=== PATIENT | female | born 1980 | race Caucasian/White ===

== ENCOUNTER → 2016-10-13 | Outpatient (REF) | payer OTHER ==
[~2016-10-13] MED LIST: /OXYB10XLT PO; ADDE15CA PO; BACT800T5 PO; BENT10CA PO; BIOT7500 PO; BIRTH CONTROL PO; BUPR300T34 PO; CART240C PO; CELE-19 PO; CYCL5TA PO; DILT240C5 PO; DILT240C77 PO; DOCU10ELUD PO; ENTO3CAP5 PO; FOLI800T PO; HAIRTAB5 PO; HYDR12.55 PO; INDA125TA PO; KETO10TAB PO; LEXA1TAB PO; LEXA5SOL PO; MULT1TAB8 PO; OMEP10CASR PO; PENT500C4 PO; PERC5TAB6 PO; SPIR25TA2 PO; TOPI200T4 PO; VITA10003 SQ; VITA100072 PO; XANA0.5T PO; ZINC30TA3 PO; ZOFR20TA PO
== END ==
LOC: M LAB REF 16:17
PROVIDERS: ATTEND Surgery
DX: J02.9 Acute pharyngitis, unspecified (principal)

== ENCOUNTER → 2016-10-18 | Outpatient (CLI) | payer OTHER ==
--- NOTE | 2016-10-18 12:13 | REP ---
LUMBOSACRAL SPINE: Five views of the lumbosacral spine are performed. There is no fracture or dislocation. Vertebral bodies are normal in height and are well aligned with normal lumbar lordosis. There is no spondylolysis or spondylolisthesis. There is mild spurring of L5. Disc spaces appear relatively well preserved. The posterior elements are intact. There is mild sclerosis at L5-S1 facets. IUD is seen in the pelvis. Surgical sutures are seen in the right lower quadrant. IMPRESSION: Very mild spurring L5 and sclerosis at the facets of L5-S1. Signed by Elieser Hitchcock MD 10/18/2016 02:18 P
== END ==
LOC: M WUC 11:24
PROVIDERS: ATTEND Nurse Practitioner Family
DX: M54.5 Low back pain (principal); M25.78 Osteophyte, vertebrae; M41.9 Scoliosis, unspecified

== ENCOUNTER → 2016-12-10 | Outpatient (REF) | payer OTHER ==
[~2016-12-10] MED LIST changes: -DILT240C5 PO; +DILT240C75 PO
[2016-12-10 18:04] LABS: VITAMIN B12 LEVEL 807 PG/ML
[2016-12-10 18:05] LABS: FOLATE > 24.0 NG/ML
== END ==
LOC: M LAB REF 16:42
PROVIDERS: ATTEND Internal Medicine
DX: L65.9 Nonscarring hair loss, unspecified (principal)

== ENCOUNTER → 2017-01-04 | Outpatient (REF) | payer OTHER | LOC: M LAB REF 09:07 | PROVIDERS: ATTEND Student in an Organized Health Care Education/Training Program | DX: R10.32 Left lower quadrant pain (principal); K50.00 Crohn's disease of small intestine without complications; R19.7 Diarrhea, unspecified; M25.50 Pain in unspecified joint ==

== ENCOUNTER → 2017-01-07 | Outpatient (CLI) | payer OTHER | LOC: M WUC 16:47 | PROVIDERS: ATTEND Internal Medicine | DX: I10 Essential (primary) hypertension (principal) ==

== ENCOUNTER → 2017-01-10 | Outpatient (REF) | payer OTHER | LOC: M LAB REF 10:31 | PROVIDERS: ATTEND Internal Medicine | DX: I10 Essential (primary) hypertension (principal) ==

== ENCOUNTER → 2017-06-28 | Outpatient (REF) | payer OTHER ==
[~2017-06-28] MED LIST changes: -ADDE15CA PO; +ADDE15CA3 PO; -CART240C PO; +CART240C3 PO; -CELE-19 PO; +CELE1CAP4 PO; -CYCL5TA PO; +CYCL5TAB PO; +PERC5TAB12 PO; -PERC5TAB6 PO; -TOPI200T4 PO; +TOPI200T7 PO
[2017-07-01 00:07] LABS: Lyme Disease IgG/IgM Antibodie <0.91 ISR (0.00-0.90); Lyme Disease IgM Ab Quantitati <0.80 index (0.00-0.79)
== END ==
LOC: M LAB REF 17:49
PROVIDERS: ATTEND Internal Medicine
DX: G43.909 Migraine, unspecified, not intractable, without status migrainosus (principal); M25.50 Pain in unspecified joint

== ENCOUNTER → 2017-10-29 | Outpatient (REF) | payer OTHER | LOC: M LAB REF 17:54 | DX: J02.9 Acute pharyngitis, unspecified (principal) ==

== ENCOUNTER 2017-11-08 02:24 | Emergency (ER) | payer OTHER ==
[2017-11-08] MEDS: NS 500 ML IV (03:45)
[2017-11-08] MEDS: NS 1,000 ML IV (03:45)
[2017-11-08 04:09] LABS: BASO % 0.2 % (0.0-1.0); EOS # 0.2 10^3/uL (0.0-0.50); EOS % 1.7 % (0.0-3.0); HEMATOCRIT 38.1 % (36.0-47.0); IMMATURE GRANULOCYTE % 0.4 % (0-3.0); LYMPH # 2.7 10^3/uL (1.5-4.5); LYMPH % 24.3 % (24.0-44.0); MEAN CORPUSCULAR HGB CONC 34.1 g/dl (32.0-36.5); MONO % 8.6 % (0.0-5.0); NEUTROPHILS # 7.3 10^3/uL (1.8-7.7); NEUTROPHILS % 64.8 % (36.0-66.0); PLATELET COUNT, AUTOMATED 293 10^3/uL (150-450); RED BLOOD COUNT 4.33 10^6/uL (4.00-5.40); WHITE BLOOD COUNT 11.2 10^3/uL (4.0-10.0)
[2017-11-08 04:19] LABS: ALBUMIN 3.8 GM/DL (3.2-5.2); ALBUMIN/GLOBULIN RATIO 0.95 (1.00-1.93); ALKALINE PHOSPHATASE 59 U/L (45-117); ALT/SGPT 36 U/L (12-78); ANION GAP 7 MEQ/L (8-16); AST/SGOT 15 U/L (7-37); BILIRUBIN,DIRECT 0.2 MG/DL (0.0-0.2); BILIRUBIN,TOTAL 0.9 MG/DL (0.2-1.0); BLOOD UREA NITROGEN 11 MG/DL (7-18); CALCIUM LEVEL 8.3 MG/DL (8.5-10.1); CARBON DIOXIDE LEVEL 24 MEQ/L (21-32); CHLORIDE LEVEL 108 MEQ/L (98-107); CREATININE FOR GFR 1.07 MG/DL (0.55-1.30); GLOMERULAR FILTRATION RATE > 60.0 (>60); GLUCOSE, FASTING 112 MG/DL (70-100); POTASSIUM SERUM 3.6 MEQ/L (3.5-5.1); SODIUM LEVEL 139 MEQ/L (136-145); TOTAL PROTEIN 7.8 GM/DL (6.4-8.2)
== END 2017-11-08 06:50 | disposition home or self-care (01) ==
LOC: M ED 02:24
DX: E86.9 Volume depletion, unspecified (principal); R19.7 Diarrhea, unspecified; I10 Essential (primary) hypertension; K58.0 Irritable bowel syndrome with diarrhea; F41.9 Anxiety disorder, unspecified; F33.9 Major depressive disorder, recurrent, unspecified; Z79.899 Other long term (current) drug therapy; Z86.69 Personal history of other diseases of the nervous system and sense organs; Z98.890 Other specified postprocedural states; Z88.5 Allergy status to narcotic agent
CPT/HCPCS: 80076

== ENCOUNTER → 2017-11-09 | Outpatient (REF) | payer OTHER | LOC: M LAB REF 12:27 | DX: R19.7 Diarrhea, unspecified (principal) | CPT/HCPCS: 87507 ==

== ENCOUNTER → 2018-04-20 | Outpatient (CLI) | payer OTHER ==
[2018-04-20 17:11] LABS: BASO % 0.5 % (0.0-1.0); EOS # 0.2 10^3/uL (0.0-0.50); EOS % 2.7 % (0.0-3.0); HEMATOCRIT 38.1 % (36.0-47.0); IMMATURE GRANULOCYTE % 0.3 % (0-3.0); LYMPH # 2.7 10^3/uL (1.5-4.5); LYMPH % 41.1 % (24.0-44.0); MEAN CORPUSCULAR HEMOGLOBIN 30.4 pg (27.0-33.0); MEAN CORPUSCULAR HGB CONC 34.1 g/dl (32.0-36.5); MEAN CORPUSCULAR VOLUME 89.2 fl (80.0-96.0); MONO # 0.6 10^3/uL (0.0-0.8); MONO % 8.4 % (0.0-5.0); NEUTROPHILS # 3.1 10^3/uL (1.8-7.7); PLATELET COUNT, AUTOMATED 276 10^3/uL (150-450); RED BLOOD COUNT 4.27 10^6/uL (4.00-5.40); RED CELL DISTRIBUTION WIDTH 12.7 % (11.5-14.5); WHITE BLOOD COUNT 6.7 10^3/uL (4.0-10.0)
[2018-04-20 17:15] LABS: IRON (FE) 107 UG/DL (50-170)
[2018-04-20 17:15] LABS: THYROXINE (T4) 9.4 UG/DL (4.5-12.0)
[2018-04-22 14:16] LABS: ANTINUCLEAR ANTIBODIES DIRECT Negative (Negative); TESTOSTERONE FREE (DIRECT) 1.4 pg/mL (0.0-4.2)
== END ==
LOC: M WUC 15:15
DX: R53.83 Other fatigue (principal); L65.8 Other specified nonscarring hair loss (principal)
CPT/HCPCS: 83540

== ENCOUNTER → 2018-06-17 | Outpatient (CLI) | payer OTHER ==
[2018-06-17 20:23] LABS: HEMATOCRIT 40.4 % (36.0-47.0)
[2018-06-17 20:40] LABS: FREE T3 2.9 PG/ML (2.2-4.0); FREE T4 1.17 NG/DL (0.76-1.46)
[2018-06-19 10:04] LABS: TOTAL 25(OH) VITAMIN D 29.4 NG/ML (30.0-100.0)
[2018-06-19 10:05] LABS: THYROID PEROXIDASE ANTIBODY < 28.0 U/ML (<60.0)
[2018-06-19 10:06] LABS: THYROGLOBULIN ANTIBODY 31.5 U/ML (<60.0)
[2018-06-20 10:44] LABS: PRETREATED FOLATE FOR RBCFOL 14.6 NG/ML; RBC FOLATE 758.9 NG/ML (280-791)
[2018-06-24 00:08] LABS: ARSENIC BLOOD 5 ug/L (2-23); GLUTATHIONE QT 275 ug/mL (176-323); LEAD BLOOD None Detected ug/dL (0-4); MAGNESIUM RBC LEVEL 4.7 mg/dL (4.2-6.8); MERCURY BLOOD None Detected ug/L (0.0-14.9); T3 REVERSE 27.5 ng/dL (9.2-24.1); ZINC RBC 1300 ug/dL (878-1660)
[2018-06-24 00:08] LABS: ALUMINUM LEVEL 11 ug/L (0-9)
== END ==
LOC: M WUC 12:34
DX: F34.1 Dysthymic disorder (principal); L63.9 Alopecia areata, unspecified; K50.00 Crohn's disease of small intestine without complications
CPT/HCPCS: 83655

== ENCOUNTER → 2018-10-04 | Outpatient (REF) | payer OTHER ==
[~2018-10-04] MED LIST changes: +AMIT10TA PO; +DILT240C14 PO; -DILT240C75 PO; +LABE20TAB PO; +SPIR-10 PO; -SPIR25TA2 PO; +TIZA4CAP PO; +TOPI25TA10 PO; +VALS1TAB47 PO; -ZOFR20TA PO; +ZOFR4TAB16 PO
[2018-10-08 00:07] LABS: HPV HYBRID CAPTURE II Negative (Negative)
== END ==
LOC: M SFHCWAGY 13:55
PROVIDERS: ATTEND Nurse Practitioner Family
DX: Z12.4 Encounter for screening for malignant neoplasm of cervix (principal)
CPT/HCPCS: 87624; G0123

== ENCOUNTER → 2018-11-29 | Outpatient (CLI) | payer OTHER ==
--- NOTE | 2018-11-29 11:56 | REPMRS ---
Patient History The patient states she had a clinical breast exam in 09/2018. Family history of colorectal cancer at age 60 in paternal cousin. Benign ultrasound-guided cyst aspiration of both breasts, 1998. Taking hormonal contraceptives for 5 years. 3D TOMOSYNTHESIS WAS PERFORMED. Digital Woman Screen Mammo: November 29, 2018 - Exam #: [id number] Bilateral CC and MLO view(s) were taken. Technologist: Dilma Aguilar, Technologist FINDINGS: There are scattered fibroglandular densities. There is no evidence of cancer on this mammogram. Large coarse benign appearing calcifications are present. Assessment: BI-RADS/ACR category 2 mammogram. Benign Findings. Recommendation Routine screening mammogram of both breasts in 1 year (for women over age 40). This mammogram was interpreted with the aid of an FDA-approved computer-aided dectection system. Electronically Signed By: Elieser Hitchcock MD 11/29/18 [id number]
== END ==
LOC: M WHC 09:29
PROVIDERS: ATTEND Nurse Practitioner Family
DX: Z12.31 Encounter for screening mammogram for malignant neoplasm of breast (principal); Z80.0 Family history of malignant neoplasm of digestive organs

== ENCOUNTER → 2019-01-05 | Outpatient (REF) | payer OTHER ==
[~2019-01-05] MED LIST changes: -/OXYB10XLT PO; +DILT1CAP5 PO; -DILT240C14 PO; -DILT240C77 PO; +DILT240C82 PO; +DITR1TAB PO; -DOCU10ELUD PO; +DOCU5LIQ PO; -VALS1TAB47 PO; +VALS1TAB67 PO; +VITA100018 PO; -VITA100072 PO
[2019-01-05 17:55] LABS: INFLUENZA A AMPLIFICATION NEGATIVE (NEGATIVE); INFLUENZA B AMPLIFICATION NEGATIVE (NEGATIVE)
== END ==
LOC: M LAB REF 16:45
PROVIDERS: ATTEND Internal Medicine
DX: R50.9 Fever, unspecified (principal)

== ENCOUNTER → 2019-01-15 | Outpatient (REF) | payer OTHER | LOC: M LAB REF 16:35 | PROVIDERS: ATTEND Nurse Practitioner Adult Health | DX: J02.9 Acute pharyngitis, unspecified (principal) ==

== ENCOUNTER → 2019-02-21 | Outpatient (REF) | payer OTHER ==
[2019-02-27 08:06] LABS: CALPROTECTIN STOOL 32 ug/g (0-120); FATS NEUTRAL Normal (.); FATS TOTAL Normal (.); PANCREATIC ELASTASE STOOL >500 (>200)
== END ==
LOC: M LAB REF 09:52
PROVIDERS: ATTEND Student in an Organized Health Care Education/Training Program
DX: K50.00 Crohn's disease of small intestine without complications (principal)

== ENCOUNTER → 2019-03-12 | Outpatient (CLI) | payer OTHER ==
[2019-03-12 20:49] LABS: BLOOD UREA NITROGEN 8 MG/DL (7-18); CREATININE FOR GFR 0.93 MG/DL (0.55-1.30); GLOMERULAR FILTRATION RATE > 60.0 (>58)
== END ==
LOC: M WUC 17:17
PROVIDERS: ATTEND Internal Medicine Gastroenterology
DX: R10.9 Unspecified abdominal pain (principal); R11.0 Nausea

== ENCOUNTER → 2019-05-04 | Outpatient (REF) | payer OTHER ==
[~2019-05-04] MED LIST changes: -BUPR300T34 PO; +BUPR300T92 PO
== END ==
LOC: M LAB REF 12:33
PROVIDERS: ATTEND Nurse Practitioner Adult Health
DX: K50.818 Crohn's disease of both small and large intestine with other complication (principal)

== ENCOUNTER → 2019-07-12 | Outpatient (REF) | payer OTHER ==
[~2019-07-12] MED LIST changes: +BUPR300T34 PO; -BUPR300T92 PO
[2019-07-12 16:00] LABS: CLOSTRIDIUM DIFFICILE PCR POSITIVE (NEGATIVE)
== END ==
LOC: M LAB REF 12:57
PROVIDERS: ATTEND Student in an Organized Health Care Education/Training Program
DX: A04.72 Enterocolitis due to Clostridium difficile, not specified as recurrent (principal); K50.00 Crohn's disease of small intestine without complications; R19.7 Diarrhea, unspecified

== ENCOUNTER → 2019-07-27 | Outpatient (REF) | payer OTHER ==
[2019-07-27 12:24] LABS: CLOSTRIDIUM DIFFICILE PCR NEGATIVE (NEGATIVE)
== END ==
LOC: M LAB REF 10:55
PROVIDERS: ATTEND Student in an Organized Health Care Education/Training Program
DX: K50.00 Crohn's disease of small intestine without complications (principal)

== ENCOUNTER → 2019-11-22 | Outpatient (REF) | payer OTHER ==
[~2019-11-22] MED LIST changes: -BUPR300T34 PO; +BUPR300T92 PO
[2019-11-22 13:10] LABS: APPEARANCE, URINE HAZY (CLEAR); BACTERIA, URINE AUTO 1+ (NEGATIVE); BILIRUBIN, URINE AUTO NEGATIVE (NEGATIVE); BLOOD, URINE BLOOD NEGATIVE (NEGATIVE); COLOR, URINE YELLOW (YELLOW); GLUCOSE, URINE (UA) AUTO NEGATIVE (NEGATIVE); KETONE, URINE AUTO NEGATIVE (NEGATIVE); LEUKOCYTE ESTERASE, URINE AUTO TRACE (NEGATIVE); MUCUS, URINE SMALL (NEGATIVE); NITRITE, URINE AUTO NEGATIVE (NEGATIVE); PROTEIN, URINE AUTO NEGATIVE (NEGATIVE); RBC, URINE AUTO 1 /HPF (0-3); SPECIFIC GRAVITY URINE AUTO 1.016 (1.002-1.035); SQUAMOUS EPITHELIAL CELL UR AU 2 /HPF (0-6); UROBILINOGEN, URINE AUTO 0.2 mg/dL (0.0-2.0); WBC, URINE AUTO 6 /HPF (0-3)
[2019-11-22 13:40] LABS: INFLUENZA A AMPLIFICATION NEGATIVE (NEGATIVE); INFLUENZA B AMPLIFICATION NEGATIVE (NEGATIVE)
== END ==
LOC: M LAB REF 12:14
PROVIDERS: ATTEND Physician Assistant
DX: J02.9 Acute pharyngitis, unspecified (principal); N39.0 Urinary tract infection, site not specified
CPT/HCPCS: 81001; 87086; 87502; U0002

== ENCOUNTER → 2020-02-13 | Outpatient (CLI) | payer OTHER ==
--- NOTE | 2020-02-19 13:58 | REPMRS ---
Patient History The patient states she had a clinical breast exam in February 2020. Family history of colorectal cancer at age 60 in paternal cousin. Benign ultrasound-guided cyst aspiration of both breasts, 1998. Taking hormonal contraceptives for 5 years. Digital Woman Screen Mammo: February 13, 2020 - Exam #: [id number] Bilateral CC and MLO view(s) were taken. Technologist: Marie Mayo, Technologist Prior study comparison: November 29, 2018, bilateral digital woman screen mammo performed at [facility]. FINDINGS: There are scattered fibroglandular densities. The Volpara volumetric breast density category is:B. There has been no change in the appearance of the mammogram from the prior studies. There is a mild amount of scattered fibroglandular density which is fairly symmetric. There is no interval development of dominant mass, architectural distortion, or grouped microcalcification suggestive of malignancy. 3-D tomosynthesis shows no additional findings. Assessment: BI-RADS/ACR category 1 mammogram. Negative Mammogram. Recommendation Routine screening mammogram of both breasts in 1 year (for women over age 40). This patient's Lifetime Breast Cancer Risk is estimated at 13.5 %. This mammogram was interpreted with the aid of an FDA-approved computer-aided dectection system. Electronically Signed By: Morgan Vargas MD 02/19/20 1447
== END ==
LOC: M WHC 09:00
PROVIDERS: ATTEND Nurse Practitioner Family
DX: Z12.31 Encounter for screening mammogram for malignant neoplasm of breast (principal); Z80.0 Family history of malignant neoplasm of digestive organs

== ENCOUNTER → 2020-02-28 | Outpatient (CLI) | payer OTHER ==
--- NOTE | 2020-02-28 14:02 | REP ---
Bilateral lower extremity Duplex Doppler venous ultrasound: Real time compression and duplex Doppler interrogation of the bilateral lower extremity deep venous system is performed. Bilaterally, the common femoral, superficial femoral and popliteal veins are fully compressible with transducer pressure and demonstrate normal spontaneous and phasic flow, without evidence of deep venous thrombosis. Impression: No evidence of deep venous thrombosis of the bilateral lower extremity femoral popliteal venous system. Electronically Signed by Elieser Hitchcock MD 02/28/2020 01:54 P
== END ==
LOC: M RAD 12:17
PROVIDERS: ATTEND Physician Assistant Surgical
DX: M25.50 Pain in unspecified joint (principal); K50.00 Crohn's disease of small intestine without complications

== ENCOUNTER → 2020-03-03 | Outpatient (REF) | payer OTHER | LOC: M LAB REF 11:04 | PROVIDERS: ATTEND Physician Assistant Surgical | DX: K50.00 Crohn's disease of small intestine without complications (principal); M25.50 Pain in unspecified joint ==

== ENCOUNTER → 2020-03-11 | Outpatient (REF) | payer OTHER | LOC: M LAB REF 16:23 | PROVIDERS: ATTEND Internal Medicine | DX: R19.7 Diarrhea, unspecified (principal); K50.818 Crohn's disease of both small and large intestine with other complication; J31.2 Chronic pharyngitis ==

== ENCOUNTER → 2020-03-12 | Outpatient (REF) | payer OTHER | LOC: M LAB REF 11:24 | PROVIDERS: ATTEND Internal Medicine | DX: R19.7 Diarrhea, unspecified (principal) ==

== ENCOUNTER → 2020-05-28 | Outpatient (REF) | payer OTHER | LOC: M LAB REF 12:56 | PROVIDERS: ATTEND Physician Assistant Surgical | DX: K50.00 Crohn's disease of small intestine without complications (principal); M25.50 Pain in unspecified joint; M79.604 Pain in right leg ==

== ENCOUNTER → 2020-07-01 | Outpatient (REF) | payer OTHER ==
[2020-07-03 08:09] LABS: LDL DIRECT 52 mg/dL (0-99)
== END ==
LOC: M LAB REF 16:26
PROVIDERS: ATTEND Internal Medicine
DX: E78.2 Mixed hyperlipidemia (principal)

== ENCOUNTER → 2020-08-12 | Outpatient (CLI) | payer SELFPAY | LOC: M LABSMTC 08:59 | PROVIDERS: ATTEND Pediatrics | DX: Z11.59 Encounter for screening for other viral diseases (principal) ==

== ENCOUNTER → 2020-09-18 | Outpatient (REF) | payer OTHER | LOC: M LAB REF 16:11 | PROVIDERS: ATTEND Nurse Practitioner Family | DX: J02.9 Acute pharyngitis, unspecified (principal) ==

== ENCOUNTER → 2020-12-08 | Outpatient (CLI) | payer OTHER ==
[~2020-12-08] MED LIST changes: -AMIT10TA PO; +AMIT10TA7 PO; +FOLI0.8T3 PO; -FOLI800T PO
== END ==
LOC: M WUC 11:33
PROVIDERS: ATTEND Physician Assistant Surgical
DX: K50.00 Crohn's disease of small intestine without complications (principal)

== ENCOUNTER → 2020-12-24 | Outpatient (CLI) | payer OTHER ==
--- NOTE | 2020-12-24 14:12 | REP ---
INDICATION: LEFT FLANK AND LLQ ABDOMINAL PAIN X3 WEEKS. COMPARISON: Comparison radiographs are from February 10, 2016.. TECHNIQUE: KUB: Two views. FINDINGS: The bowel gas pattern is normal. Air and stool is seen in a nondistended colon. Anastomotic suture is visible in the right mid abdomen as before. Psoas margins and flank stripes are intact. An IUD is noted in the central pelvis. There are phleboliths in the pelvis. No urinary tract calculus is visible. No mass or organomegaly is seen. IMPRESSION: IUD in place. Postoperative changes in the right mid abdomen. No acute abnormality. <Electronically signed by Morgan Vargas > 12/24/20 1947
== END ==
LOC: M WUC 13:40
PROVIDERS: ATTEND Nurse Practitioner Family
DX: M54.9 Dorsalgia, unspecified (principal); R10.814 Left lower quadrant abdominal tenderness

== ENCOUNTER → 2020-12-24 | Outpatient (REF) | payer OTHER ==
[2020-12-24 16:50] LABS: BACTERIA, URINE AUTO NEGATIVE (NEGATIVE); RBC, URINE AUTO 0 /HPF (0-3); SQUAMOUS EPITHELIAL CELL UR AU 1 /HPF (0-6); WBC, URINE AUTO 0 /HPF (0-3)
== END ==
LOC: M LAB REF 16:09
PROVIDERS: ATTEND Nurse Practitioner Family
DX: R10.814 Left lower quadrant abdominal tenderness (principal)

== ENCOUNTER → 2021-01-26 | Outpatient (CLI) | payer OTHER ==
[~2021-01-26] MED LIST changes: +GASTROGRAFIN SOLUTION 30ML (Q9963) As Ordered ONE; +ISOVUE-370 76% 100ML VIAL As Ordered ONE
--- NOTE | 2021-01-26 16:31 | REPVR ---
PROCEDURE INFORMATION: Exam: CT Abdomen And Pelvis Without And With Contrast Exam date and time: 01/26/2021 4:06 PM Age: 40 years old Clinical indication: Abdominal pain; Additional info: Abd pain TECHNIQUE: Imaging protocol: Computed tomography of the abdomen and pelvis without and with contrast. Axial, coronal and sagittal reformatted images were created and reviewed. Radiation optimization: All CT scans at this facility use at least one of these dose optimization techniques: automated exposure control; mA and/or kV adjustment per patient size (includes targeted exams where dose is matched to clinical indication); or iterative reconstruction. Contrast material: ISOVUE 370; Contrast volume: 100 ml; Contrast route: INTRAVENOUS (IV); COMPARISON: CT ABD PELVIS W/O FOL BY WIT 08/21/2015 8:20 AM FINDINGS: Pleural spaces: 5 mm pleural based right lower lobe nodular density. Mediastinal space: Small hiatal hernia with contrast in the distal esophagus, suggesting reflux. Liver: Unremarkable. Gallbladder and bile ducts: No radiodense gallstones. No biliary ductal dilatation. Pancreas: Unremarkable. Spleen: Unremarkable. Adrenal glands: Normal. No mass. Kidneys and ureters: 7 x 4 mm calculus in the left renal pelvis. No hydronephrosis. Stomach and bowel: No bowel wall thickening. No obstruction. No pneumatosis. Appendix: Status post appendectomy. Intraperitoneal space: No free fluid. No organized fluid collection. No free air. Vasculature: Unremarkable. No aneurysm. Lymph nodes: No pathologically enlarged lymph nodes. Urinary bladder: Unremarkable as visualized. Reproductive: Intrauterine device in place. Bones/joints: No acute osseous abnormality. Mild degenerative changes. Soft tissues: Unremarkable. IMPRESSION: 1. 7 x 4 mm calculus in the left renal pelvis. No hydronephrosis. 2. Additional findings, as above. Electronically signed by: Jasper Cassidy On 01/26/2021 16:30:57 PM
== END ==
LOC: M RAD 14:10
PROVIDERS: ATTEND Internal Medicine
DX: N20.0 Calculus of kidney (principal)
CPT/HCPCS: 74178; Q9963; Q9967

== ENCOUNTER → 2021-02-24 | Outpatient (REF) | payer OTHER ==
[~2021-02-24] MED LIST changes: -GASTROGRAFIN SOLUTION 30ML (Q9963) As Ordered ONE; -ISOVUE-370 76% 100ML VIAL As Ordered ONE
[2021-02-24 13:22] LABS: APPEARANCE, URINE CLEAR (CLEAR); BACTERIA, URINE AUTO NEGATIVE (NEGATIVE); BILIRUBIN, URINE AUTO NEGATIVE (NEGATIVE); BLOOD, URINE BLOOD NEGATIVE (NEGATIVE); COLOR, URINE YELLOW (YELLOW); GLUCOSE, URINE (UA) AUTO NEGATIVE (NEGATIVE); KETONE, URINE AUTO NEGATIVE (NEGATIVE); LEUKOCYTE ESTERASE, URINE AUTO NEGATIVE (NEGATIVE); MUCUS, URINE SMALL (NEGATIVE); NITRITE, URINE AUTO NEGATIVE (NEGATIVE); PROTEIN, URINE AUTO NEGATIVE (NEGATIVE); RBC, URINE AUTO 0 /HPF (0-3); SPECIFIC GRAVITY URINE AUTO 1.006 (1.002-1.035); SQUAMOUS EPITHELIAL CELL UR AU 0 /HPF (0-6); UROBILINOGEN, URINE AUTO 0.2 mg/dL (0.0-2.0); WBC, URINE AUTO 1 /HPF (0-3)
== END ==
LOC: M SMT 12:58
PROVIDERS: ATTEND Nurse Practitioner Family
DX: N20.0 Calculus of kidney (principal)

== ENCOUNTER → 2021-02-24 | Outpatient (CLI) | payer OTHER ==
--- NOTE | 2021-02-24 10:30 | REP ---
INDICATION: CALCULUS OF LEFT KIDNEY. COMPARISON: Radiograph 12/24/2020. CT 01/26/2021. TECHNIQUE: AP views abdomen and pelvis. FINDINGS: A 5 mm calcification is visualized in the region of the left renal pelvis, at the site of calculus seen on the recent CT exam. Multiple phleboliths are seen in the pelvis. There is an IUD in the pelvis to the right of midline. The bowel gas pattern is normal. Surgical sutures are seen in the right lower quadrant. IMPRESSION: A 5 mm calcification is visualized in the region of the left renal pelvis, at the site of calculus seen on the recent CT exam. <Electronically signed by Elieser Hitchcock > 02/24/21 1026
== END ==
LOC: M WUC 09:52
PROVIDERS: ATTEND Nurse Practitioner Family
DX: N20.0 Calculus of kidney (principal)

== ENCOUNTER → 2021-03-04 | Outpatient (CLI) | payer OTHER ==
--- NOTE | 2021-03-04 14:36 | REP ---
INDICATION: PREOP TESTING COMPARISON: 07/26/2016 TECHNIQUE: PA and lateral. FINDINGS: The mediastinum and cardiac silhouette are normal. The lung tim are clear and without acute consolidation, effusion, or pneumothorax. The skeletal structures are intact and normal. IMPRESSION: No acute cardiopulmonary process. <Electronically signed by Jalil Milan > 03/04/21 0383
[2021-03-04 16:13] LABS: HEMATOCRIT 39.4 % (36.0-47.0); HEMOGLOBIN 13.7 g/dl (12.0-15.5); MEAN CORPUSCULAR HEMOGLOBIN 30.2 pg (27.0-33.0); MEAN CORPUSCULAR HGB CONC 34.8 g/dl (32.0-36.5); PLATELET COUNT, AUTOMATED 290 10^3/uL (150-450); RED BLOOD COUNT 4.53 10^6/uL (4.00-5.40); WHITE BLOOD COUNT 7.6 10^3/uL (4.0-10.0)
[2021-03-04 16:25] LABS: INR 0.91; PROTHROMBIN TIME 12.4 SECONDS (12.5-14.3)
[2021-03-04 16:26] LABS: PARTIAL THROMBOPLASTIN TIME 30.9 SECONDS (24.2-38.5)
[2021-03-04 16:34] LABS: BLOOD UREA NITROGEN 8 MG/DL (7-18); CALCIUM LEVEL 8.9 MG/DL (8.5-10.1); CARBON DIOXIDE LEVEL 24 MEQ/L (21-32); CHLORIDE LEVEL 107 MEQ/L (98-107); CREATININE FOR GFR 0.88 MG/DL (0.55-1.30); GLOMERULAR FILTRATION RATE > 60.0 (>58); GLUCOSE, FASTING 85 MG/DL (70-100); SODIUM LEVEL 140 MEQ/L (136-145)
== END ==
LOC: M WUC 13:53
PROVIDERS: ATTEND Nurse Practitioner Family
DX: Z01.818 Encounter for other preprocedural examination (principal); N20.0 Calculus of kidney

== ENCOUNTER → 2021-03-05 | Outpatient (CLI) | payer OTHER ==
--- NOTE | 2021-03-05 12:38 | REPMRS ---
Patient History The patient states she had a clinical breast exam in March 2021. Family history of colorectal cancer at age 60 in paternal cousin. Benign ultrasound-guided cyst aspiration of both breasts, 1998. Taking hormonal contraceptives for 5 years. No breast complaints today Patient signed the MRS sheet 1st covid vaccine 10/01/20-right arm-Pfizer 2nd covid vaccine 10/22/20-right arm Priors on PACS Patient Identification Verified Patient denied Digital Woman Screen Mammo: March 05, 2021 - Exam #: [id number] Bilateral CC and MLO view(s) were taken. Technologist: Marie Mayo, Technologist Prior study comparison: February 13, 2020, bilateral digital woman screen mammo performed at [facility]. November 29, 2018, bilateral digital woman screen mammo performed at [facility]. FINDINGS: There are scattered fibroglandular densities. Screening. Digital screening (2D) mammography was performed bilaterally in the CC and MLO projections. Additionally, breast tomosynthesis (3D mammography) was performed bilaterally in the CC and MLO projections. Todays exam was compared to the prior exam/exams. By history, the patient has no complaints of a palpable breast abnormality or other significant breast complaints. The breasts are unchanged in size and shape. There are no shant-soft tissue densities or spiculated masses. There is no internal architectural distortion. Once again, stable benign appearing calcifications are seen.There are no suspicious shant-calcific clusters. Skin thickening or nipple retraction is not present. IMPRESSION: BI-RADS Category 2- Benign Findings. There is no evidence of malignant alteration of the breasts. Followup examination recommended in one year. The Volpara volumetric breast density category is B, there are scattered areas of fibroglandular densities. This mammogram was read with the assistance of [employer],an FDA approved computer aided detection system for mammography. The lifetime Tyrer-Cuzick score is 13.4 % Negative x-ray reports should not delay surgical consultation if a dominant or clinically suspicious mass is present. Not all breast cancers can be identified by mammography. Therefore, we recommend that you continue to perform regular breast self-examination and physical examination and then promptly contact your physician of any concerns or changes. Adenosis and dense breasts may obscure an underlying neoplasm. Assessment: BI-RADS/ACR category 2 mammogram. Benign Findings. Recommendation Routine screening mammogram of both breasts in 1 year. Electronically Signed By: Josiah Giron DO 03/05/21 [id number]
== END ==
LOC: M WHC 11:17
PROVIDERS: ATTEND Advanced Practice Midwife
DX: Z12.31 Encounter for screening mammogram for malignant neoplasm of breast (principal)

== ENCOUNTER → 2021-03-14 | Outpatient (CLI) | payer OTHER ==
[~2021-03-14] MED LIST changes: +AIMO70IN2 SC; +FLOM0.4C39 PO; +HUMI40IN2 SC; +OMEP40CA4 PO
== END ==
LOC: M LABSMTC 10:58
PROVIDERS: ATTEND Anesthesiology
DX: Z01.818 Encounter for other preprocedural examination (principal); Z11.52 Encounter for screening for COVID-19

== ENCOUNTER 2021-03-19 08:15 | Day surgery (SDC) | payer OTHER ==
[~2021-03-19] VITALS: Ht 165.1 cm; Wt 93.0 kg
[~2021-03-19 08:15] MED LIST changes: +LIDOCAINE 1% MDV 20ML VIAL SQ PRN; +ceFAZolin SOD 2 GM in IV 1 EA IV ONE
--- NOTE | 2021-03-19 09:07 | REP ---
INDICATION: KIDNEY STONE COMPARISON: 02/24/2021 TECHNIQUE: Supine view of the abdomen and pelvis. FINDINGS: Evaluation of the urinary tract system is limited due to overlying bowel gas. 6 mm nonobstructing left renal calculus cannot be excluded. Bowel gas pattern is nonspecific and without obstruction or perforation. No organomegaly. Calcifications in the pelvis consistent with phleboliths. IUD identified in the pelvis. Skeletal structures intact. IMPRESSION: Limited examination of the urinary tract with possible nonobstructing left renal calculus. <Electronically signed by Jalil Milan > 03/19/21 0904
[2021-03-19] MEDS ORDERED: LR 1,000 ML IV ONE (09:35)
[2021-03-19] MEDS ORDERED: MIDAZOLAM INJ 2MG/2ML VIAL (J2250 PER 1MG) As Ordered ONE (10:04)
[2021-03-19] MEDS ORDERED: fentaNYL 100 MCG/2 ML INJECTION (J3010) As Ordered ONE (10:05)
[2021-03-19] MEDS ORDERED: dexameTHASONE 4 MG/ML 1ML VIAL (J1100 PER 1MG) As Ordered ONE (10:08)
[2021-03-19] MEDS ORDERED: ONDANSETRON 4MG/2ML VIAL As Ordered ONE (10:08)
[2021-03-19] MEDS ORDERED: FLOM0.4C39 PO (11:13)
[2021-03-19] MEDS ORDERED: OXYC1TAB23 PO (11:13)
[2021-03-19] MEDS ORDERED: propofoL 200 MG/20 ML VIAL As Ordered ONE (11:26)
[2021-03-19] MEDS ORDERED: PERCOCET 5MG/325MG TAB PO PRN (12:45)
[2021-03-19 13:05] VITALS: BP 133/88
--- NOTE | 2021-03-19 19:12 | RO ---
OPERATIVE NOTE DATE OF OPERATION: 03/19/2021 PREOPERATIVE DIAGNOSIS: Left kidney stone. POSTOPERATIVE DIAGNOSIS: Left kidney stone. PROCEDURES: Left extracorporeal shock wave lithotripsy. SURGEON: Hayden Montelongo MD. SENIOR ELECTRONICS DESIGN ENGINEER: None. ANESTHESIA: Monitored Anesthesia Care (MAC). OPERATIVE INDICATIONS: This is a 40-year-old female who was found to have an approximately 6-7 mm left ureteropelvic junction stone on recent CAT scan. She was brought to the operating room today for treatment. DESCRIPTION OF PROCEDURE: The patient was brought to the operating room and MAC anesthesia was induced. Prophylactic antibiotics were infused. She was then placed in the supine position in preparation for left-sided extracorporeal shock wave lithotripsy. Fluoroscopy was utilized to monitor stone position and fragmentation throughout the procedure. Shock waves were then delivered to the left-sided kidney stone ungated. There were no arrhythmias. The stone did appear to fragment well. After 2500 shocks, the procedure was concluded. The patient was then awakened from anesthesia and transferred to the recovery room in stable condition. ESTIMATED BLOOD LOSS: 0 mL. COMPLICATIONS: None. SPECIMEN: None. PLAN: The patient will follow up in the Urology Clinic in approximately 3-4 weeks with imaging prior to assess for residual stone burden. JONY
== END 2021-03-19 13:20 | disposition home or self-care (01) ==
LOC: M SDC 08:15
PROVIDERS: ATTEND Urology
DX: N20.0 Calculus of kidney (principal); D64.9 Anemia, unspecified; F32.9 Major depressive disorder, single episode, unspecified; F41.9 Anxiety disorder, unspecified; I10 Essential (primary) hypertension; K44.9 Diaphragmatic hernia without obstruction or gangrene; K50.90 Crohn's disease, unspecified, without complications; Z79.899 Other long term (current) drug therapy
CPT/HCPCS: 50590; 74018; 81025; J0690; J1100; J2250; J2405; J3010

== ENCOUNTER → 2021-04-03 | Outpatient (REF) | payer OTHER ==
[~2021-04-03] MED LIST changes: -LIDOCAINE 1% MDV 20ML VIAL SQ PRN; +OXYC1TAB23 PO; -ceFAZolin SOD 2 GM in IV 1 EA IV ONE
== END ==
LOC: M LAB REF 08:40
PROVIDERS: ATTEND Physician Assistant
DX: K50.00 Crohn's disease of small intestine without complications (principal); K21.9 Gastro-esophageal reflux disease without esophagitis

== ENCOUNTER → 2021-04-06 | Outpatient (REF) | payer OTHER ==
[2021-04-06 13:50] LABS: APPEARANCE, URINE CLEAR (CLEAR); BACTERIA, URINE AUTO 1+ (NEGATIVE); BILIRUBIN, URINE AUTO NEGATIVE (NEGATIVE); BLOOD, URINE BLOOD 2+ (NEGATIVE); COLOR, URINE YELLOW (YELLOW); GLUCOSE, URINE (UA) AUTO NEGATIVE (NEGATIVE); KETONE, URINE AUTO NEGATIVE (NEGATIVE); LEUKOCYTE ESTERASE, URINE AUTO NEGATIVE (NEGATIVE); MUCUS, URINE SMALL (NEGATIVE); NITRITE, URINE AUTO NEGATIVE (NEGATIVE); PROTEIN, URINE AUTO NEGATIVE (NEGATIVE); RBC, URINE AUTO 4 /HPF (0-3); SPECIFIC GRAVITY URINE AUTO 1.008 (1.002-1.035); SQUAMOUS EPITHELIAL CELL UR AU 0 /HPF (0-6); UROBILINOGEN, URINE AUTO 0.2 mg/dL (0.0-2.0); WBC, URINE AUTO 1 /HPF (0-3)
== END ==
LOC: M SMT 13:12
PROVIDERS: ATTEND Nurse Practitioner Family
DX: N39.0 Urinary tract infection, site not specified (principal)

== ENCOUNTER → 2021-04-08 | Outpatient (REF) | payer OTHER ==
[2021-04-08 11:54] LABS: APPEARANCE, URINE HAZY (CLEAR); BACTERIA, URINE AUTO NEGATIVE (NEGATIVE); BILIRUBIN, URINE AUTO NEGATIVE (NEGATIVE); BLOOD, URINE BLOOD NEGATIVE (NEGATIVE); COLOR, URINE YELLOW (YELLOW); GLUCOSE, URINE (UA) AUTO NEGATIVE (NEGATIVE); KETONE, URINE AUTO NEGATIVE (NEGATIVE); LEUKOCYTE ESTERASE, URINE AUTO TRACE (NEGATIVE); MUCUS, URINE SMALL (NEGATIVE); NITRITE, URINE AUTO NEGATIVE (NEGATIVE); PROTEIN, URINE AUTO NEGATIVE (NEGATIVE); RBC, URINE AUTO 0 /HPF (0-3); SPECIFIC GRAVITY URINE AUTO 1.006 (1.002-1.035); SQUAMOUS EPITHELIAL CELL UR AU 6 /HPF (0-6); UROBILINOGEN, URINE AUTO 0.2 mg/dL (0.0-2.0); WBC, URINE AUTO 2 /HPF (0-3)
== END ==
LOC: M LAB REF 11:17
PROVIDERS: ATTEND Nurse Practitioner Family
DX: N39.0 Urinary tract infection, site not specified (principal)

== ENCOUNTER → 2021-04-15 | Outpatient (CLI) | payer OTHER ==
--- NOTE | 2021-04-15 10:39 | REP ---
INDICATION: CALCULUS OF KIDNEY. COMPARISON: Supine abdomen dated 03/19/2021, abdomen/pelvis CT dated 01/26/2021 and abdomen/pelvis CT dated 08/21/2015. TECHNIQUE: Two supine AP views of the abdomen. FINDINGS: There calcifications in the pelvis bilaterally, unchanged from the prior studies. By CT these appear to be phleboliths. The 7 x 4 mm left renal pelvis calculus identified on the 01/26/2021 CT is not identified on the plain films today. There is a surgical staple line in the abdomen on the right, unchanged. There is an IUD in the pelvis, unchanged. The bowel gas pattern is normal. IMPRESSION: Stable pelvic calcifications as described. IUD in the pelvis. Surgical staple line on the right. The left renal pelvis calculus identified by CT on 03/19/2021 is not visible on the plain films today. <Electronically signed by Elieser Moffett > 04/15/21 [id number]
== END ==
LOC: M PLAIMG 09:18
PROVIDERS: ATTEND Nurse Practitioner Women's Health
DX: N20.0 Calculus of kidney (principal)

== ENCOUNTER → 2021-04-15 | Outpatient (REF) | payer OTHER | LOC: M SMT 13:29 | PROVIDERS: ATTEND Nurse Practitioner Women's Health | DX: N20.0 Calculus of kidney (principal) ==

== ENCOUNTER → 2021-07-10 | Outpatient (CLI) | payer OTHER | LOC: M LABSMTC 11:07 | PROVIDERS: ATTEND Family Medicine | DX: Z11.52 Encounter for screening for COVID-19 (principal) ==

== ENCOUNTER → 2021-07-27 | Outpatient (CLI) | payer OTHER ==
[~2021-07-27] MED LIST changes: +ISOVUE-370 76% 100ML VIAL As Ordered ONE
--- NOTE | 2021-07-27 10:13 | REP ---
INDICATION: RT LOWER LOBE LUNG NODULE COMPARISON: Abdominal CT dated 01/26/2021, chest CT dated 07/07/2014 TECHNIQUE: Axial contrast enhanced images from the thoracic inlet to the upper abdomen with coronal and sagittal reformations using 75 ml Isovue 370 intravenous contrast material. This CT examination was performed using the following dose reduction techniques: Automated exposure control, adjustment of mA and/or kv according to the patient's size, and use of iterative reconstruction technique. FINDINGS: The bilateral lung tim are well aerated and the 5 mm noncalcified subpleural nodule along the lateral aspect of the right lower lobe remains stable. Few scattered small primarily noncalcified are also identified bilaterally measuring up to 4 mm on current examination. These findings represent relatively new nodules as compared with most recent complete chest CT dated 2013, but likely represent benign granulomatous changes. No further acute consolidation, larger suspicious nodule or mass lesion. No effusion. No pneumothorax. There is minimal perifissural density along the minor fissure. The tracheobronchial tree is patent. Mediastinum demonstrates normal thoracic aorta, pulmonary vasculature, and heart/pericardium. No evidence for adenopathy. Thyroid gland is normal. Limited upper abdomen demonstrates hepatosteatosis and normal bilateral adrenal glands. Surrounding musculoskeletal structures are intact. IMPRESSION: 1. Few small scattered nonspecific noncalcified nodules likely representing granulomatous disease. Largest nodule measures 5 mm and based on guidelines, high risk patients may warrant 12 month follow-up examination. 2. Upper abdomen demonstrates hepatosteatosis. <Electronically signed by Jalil Milan > 07/27/21 1016
== END ==
LOC: M RAD 07:48
PROVIDERS: ATTEND Internal Medicine
DX: R91.1 Solitary pulmonary nodule (principal)

== ENCOUNTER → 2021-09-16 | Outpatient (CLI) | payer OTHER ==
[~2021-09-16] MED LIST changes: -ISOVUE-370 76% 100ML VIAL As Ordered ONE
== END ==
LOC: M WUC 13:28
PROVIDERS: ATTEND Internal Medicine Pulmonary Disease
DX: R91.8 Other nonspecific abnormal finding of lung field (principal)

== ENCOUNTER 2021-10-16 16:42 | Emergency (ER) | payer OTHER ==
[~2021-10-16] VITALS: Ht 165.1 cm; Wt 99.7 kg
[2021-10-16] MEDS ORDERED: NS 1,000 ML IV ONE (18:45)
[2021-10-16] MEDS ORDERED: ONDANSETRON 4MG/2ML VIAL IV ONE (18:45)
[2021-10-16] MEDS ORDERED: KETOROLAC 30 MG/ML 1ML VIAL IV ONE (18:45)
[2021-10-16 18:57] LABS: BASO % 0.4 % (0.0-1.0); EOS # 0.2 10^3/uL (0.0-0.5); EOS % 2.2 % (0.0-3.0); HEMATOCRIT 41.7 % (36.0-47.0); HEMOGLOBIN 14.1 g/dl (12.0-15.5); LYMPH % 45.2 % (24.0-44.0); MEAN CORPUSCULAR HEMOGLOBIN 30.4 pg (27.0-33.0); MEAN CORPUSCULAR HGB CONC 33.8 g/dl (32.0-36.5); MEAN CORPUSCULAR VOLUME 89.9 fl (80.0-96.0); MONO # 0.9 10^3/uL (0.0-0.8); MONO % 10.2 % (2.0-8.0); NEUTROPHILS # 3.7 10^3/uL (1.5-8.5); NEUTROPHILS % 41.7 % (36.0-66.0); PLATELET COUNT, AUTOMATED 250 10^3/uL (150-450); RED BLOOD COUNT 4.64 10^6/uL (4.00-5.40); WHITE BLOOD COUNT 8.9 10^3/uL (4.0-10.0)
[2021-10-16 19:13] LABS: HCG, SERUM QUALITATIVE NEGATIVE (NEGATIVE)
[2021-10-16 19:17] LABS: ALBUMIN 3.8 GM/DL (3.2-5.2); ALT/SGPT 42 U/L (12-78); BILIRUBIN,DIRECT 0.1 MG/DL (0.0-0.2); BILIRUBIN,TOTAL 0.6 MG/DL (0.2-1.0); BLOOD UREA NITROGEN 11 MG/DL (7-18); CALCIUM LEVEL 8.9 MG/DL (8.5-10.1); CARBON DIOXIDE LEVEL 25 MEQ/L (21-32); CHLORIDE LEVEL 107 MEQ/L (98-107); CREATININE FOR GFR 0.86 MG/DL (0.55-1.30); GLOMERULAR FILTRATION RATE > 60.0 (>58); GLUCOSE, FASTING 90 MG/DL (70-100); LIPASE 136 U/L (73-393); POTASSIUM SERUM 4.2 MEQ/L (3.5-5.1); SODIUM LEVEL 139 MEQ/L (136-145); TOTAL PROTEIN 7.7 GM/DL (6.4-8.2)
[2021-10-16] MEDS ORDERED: ISOVUE-370 76% 100ML VIAL As Ordered ONE (19:29)
[2021-10-16 22:33] VITALS: BP 138/98
== END 2021-10-16 23:01 | disposition home or self-care (01) ==
LOC: M ED 16:42
DX: N83.202 Unspecified ovarian cyst, left side (principal); R19.7 Diarrhea, unspecified; I10 Essential (primary) hypertension; Z87.442 Personal history of urinary calculi
CPT/HCPCS: 74177; 80048; 80076; 81001; 83690; 84702; 84703; 85025; 87086; 87804; 96361; 96374; 96375; 99284; J1885; J2405; Q9967

== ENCOUNTER → 2021-10-19 | Outpatient (REF) | payer OTHER | LOC: M LAB REF 08:59 | PROVIDERS: ATTEND Physician Assistant Medical | DX: R19.7 Diarrhea, unspecified (principal) ==

== ENCOUNTER → 2021-10-20 | Outpatient (CLI) | payer OTHER ==
[~2021-10-20] MED LIST changes: +METHACHOLINE KIT (J7674) INH ONE
== END ==
LOC: M CARPUL 15:00
PROVIDERS: ATTEND Internal Medicine Pulmonary Disease
DX: R91.8 Other nonspecific abnormal finding of lung field (principal)

== ENCOUNTER → 2021-10-26 | Outpatient (CLI) | payer OTHER ==
[~2021-10-26] MED LIST changes: -METHACHOLINE KIT (J7674) INH ONE
[2021-10-26 15:45] LABS: BASO % 0.4 % (0.0-1.0); EOS # 0.2 10^3/uL (0.0-0.5); HEMATOCRIT 40.4 % (36.0-47.0); LYMPH # 3.4 10^3/uL (1.5-5.0); LYMPH % 40.6 % (24.0-44.0); MEAN CORPUSCULAR HEMOGLOBIN 30.5 pg (27.0-33.0); MEAN CORPUSCULAR HGB CONC 34.7 g/dl (32.0-36.5); MONO # 0.7 10^3/uL (0.0-0.8); MONO % 7.8 % (2.0-8.0); NEUTROPHILS # 4.1 10^3/uL (1.5-8.5); PLATELET COUNT, AUTOMATED 292 10^3/uL (150-450); RED BLOOD COUNT 4.59 10^6/uL (4.00-5.40); WHITE BLOOD COUNT 8.5 10^3/uL (4.0-10.0)
== END ==
LOC: M WUC 14:37
PROVIDERS: ATTEND Internal Medicine Pulmonary Disease
DX: R91.8 Other nonspecific abnormal finding of lung field (principal)

== ENCOUNTER → 2021-11-20 | Outpatient (REF) | payer OTHER | LOC: M LAB REF 12:20 | PROVIDERS: ATTEND Internal Medicine | DX: R50.9 Fever, unspecified (principal); I10 Essential (primary) hypertension ==

== ENCOUNTER → 2021-12-02 | Outpatient (REF) | payer OTHER | LOC: M LAB REF 12:30 | PROVIDERS: ATTEND Internal Medicine | DX: R19.7 Diarrhea, unspecified (principal) ==

== ENCOUNTER → 2021-12-08 | Outpatient (REF) | payer OTHER | LOC: M LAB REF 12:24 | PROVIDERS: ATTEND Podiatrist | DX: M79.672 Pain in left foot (principal) ==

== ENCOUNTER → 2021-12-22 | Outpatient (CLI) | payer OTHER | LOC: M WHC 10:23 | PROVIDERS: ATTEND Obstetrics & Gynecology | DX: N83.202 Unspecified ovarian cyst, left side (principal) ==

== ENCOUNTER → 2021-12-28 | Outpatient (REF) | payer OTHER | LOC: M SFHCWAGY 12:56 | PROVIDERS: ATTEND Obstetrics & Gynecology | DX: Z12.4 Encounter for screening for malignant neoplasm of cervix (principal) ==

== ENCOUNTER → 2022-01-04 | Outpatient (REF) | payer OTHER | LOC: M LAB REF 13:02 | PROVIDERS: ATTEND Podiatrist | DX: M79.672 Pain in left foot (principal) ==

== ENCOUNTER → 2022-01-12 | Outpatient (REF) | payer OTHER | LOC: M LAB REF 09:28 | PROVIDERS: ATTEND Podiatrist | DX: L03.032 Cellulitis of left toe (principal); M79.672 Pain in left foot ==

== ENCOUNTER → 2022-01-20 | Outpatient (REF) | payer OTHER ==
[2022-01-20 14:02] LABS: C REACTIVE PROTEIN QUANTITATIV < 0.30 MG/DL (0.00-0.30); IMMUNOGLOBULIN G 1720 MG/DL (681-1648)
== END ==
LOC: M LAB REF 12:56
PROVIDERS: ATTEND Internal Medicine
DX: L03.116 Cellulitis of left lower limb (principal); R50.9 Fever, unspecified

== ENCOUNTER → 2022-01-21 | Outpatient (CLI) | payer OTHER | LOC: M WUC 13:28 | PROVIDERS: ATTEND Internal Medicine | DX: L03.116 Cellulitis of left lower limb (principal) ==

== ENCOUNTER → 2022-01-29 | Outpatient (CLI) | payer OTHER ==
[~2022-01-29] MED LIST changes: +MINO100T PO; +PRED5PAK PO
== END ==
LOC: M WHC 12:33
PROVIDERS: ATTEND Nurse Practitioner Family
DX: N63.13 Unspecified lump in the right breast, lower outer quadrant (principal)
CPT/HCPCS: 76641; 77066; G0279

== ENCOUNTER 2022-02-01 12:34 | Emergency (ER) | payer OTHER ==
[~2022-02-01] VITALS: Ht 165.1 cm; Wt 98.6 kg
[~2022-02-01 12:34] MED LIST changes: -MINO100T PO; -PRED5PAK PO
[2022-02-01] MEDS ORDERED: MINO100T PO (12:48)
[2022-02-01] MEDS ORDERED: PRED5PAK PO (12:48)
[2022-02-01] MEDS ORDERED: NS 1,000 ML IV ONE (13:15)
[2022-02-01 13:33] LABS: BASO % 0.3 % (0.0-1.0); EOS # 0.2 10^3/uL (0.0-0.5); EOS % 1.4 % (0.0-3.0); HEMATOCRIT 40.2 % (36.0-47.0); HEMOGLOBIN 13.7 g/dl (12.0-15.5); LYMPH # 3.3 10^3/uL (1.5-5.0); LYMPH % 29.2 % (24.0-44.0); MEAN CORPUSCULAR HEMOGLOBIN 30.6 pg (27.0-33.0); MEAN CORPUSCULAR HGB CONC 34.1 g/dl (32.0-36.5); MEAN CORPUSCULAR VOLUME 89.9 fl (80.0-96.0); MONO # 0.7 10^3/uL (0.0-0.8); MONO % 6.5 % (2.0-8.0); NEUTROPHILS # 6.9 10^3/uL (1.5-8.5); NEUTROPHILS % 61.9 % (36.0-66.0); PLATELET COUNT, AUTOMATED 251 10^3/uL (150-450); RED BLOOD COUNT 4.47 10^6/uL (4.00-5.40); WHITE BLOOD COUNT 11.2 10^3/uL (4.0-10.0)
[2022-02-01 13:58] LABS: ERYTHROCYTE SEDIMENTATION RATE 7 mm/hr (0-20)
[2022-02-01 13:59] LABS: BLOOD UREA NITROGEN 13 MG/DL (7-18); CALCIUM LEVEL 8.8 MG/DL (8.5-10.1); CARBON DIOXIDE LEVEL 29 MEQ/L (21-32); CHLORIDE LEVEL 105 MEQ/L (98-107); CREATININE FOR GFR 0.92 MG/DL (0.55-1.30); GLOMERULAR FILTRATION RATE > 60.0 (>58); GLUCOSE, FASTING 88 MG/DL (70-100); POTASSIUM SERUM 4.3 MEQ/L (3.5-5.1); SODIUM LEVEL 136 MEQ/L (136-145)
[2022-02-01] MEDS ORDERED: diphenhydrAMINE 50MG/ML VIAL (J1200) IV STA (14:11)
[2022-02-01 15:20] VITALS: BP 132/89
== END 2022-02-01 15:23 | disposition home or self-care (01) ==
LOC: M ED 12:34
DX: M27.2 Inflammatory conditions of jaws (principal); A49.02 Methicillin resistant Staphylococcus aureus infection, unspecified site; I10 Essential (primary) hypertension; Z79.2 Long term (current) use of antibiotics; Z79.899 Other long term (current) drug therapy
CPT/HCPCS: 80048; 83605; 85025; 85652; 86140; 87880; 96361; 96374; 99284; J1200

== ENCOUNTER → 2022-02-04 | Outpatient (CLI) | payer OTHER ==
[~2022-02-04] MED LIST changes: +MINO100T PO; +PRED5PAK PO
== END ==
LOC: M RAD 16:19
PROVIDERS: ATTEND Internal Medicine Pulmonary Disease
DX: R91.8 Other nonspecific abnormal finding of lung field (principal)

== ENCOUNTER → 2022-06-17 | Outpatient (REF) | payer OTHER ==
[~2022-06-17] MED LIST changes: +INDA1.253 PO; -INDA125TA PO
== END ==
LOC: M LAB REF 16:41
PROVIDERS: ATTEND Podiatrist
DX: M79.672 Pain in left foot (principal)

== ENCOUNTER → 2022-07-28 | Outpatient (REF) | payer OTHER | LOC: M LAB REF 12:47 | PROVIDERS: ATTEND Internal Medicine | DX: L03.032 Cellulitis of left toe (principal) ==

== ENCOUNTER → 2022-10-22 | Outpatient (CLI) | payer OTHER | LOC: M LABSMTC 07:56 | PROVIDERS: ATTEND Physician Assistant | DX: Z11.52 Encounter for screening for COVID-19 (principal) ==

== ENCOUNTER → 2022-11-18 | Outpatient (REF) | payer OTHER | LOC: M LAB REF 09:42 | PROVIDERS: ATTEND Physician Assistant | DX: K21.9 Gastro-esophageal reflux disease without esophagitis (principal); K50.00 Crohn's disease of small intestine without complications; M25.50 Pain in unspecified joint ==

== ENCOUNTER → 2023-06-15 | Outpatient (REF) | payer OTHER ==
[~2023-06-15] MED LIST changes: -DILT1CAP5 PO; +DILT240C41 PO
== END ==
LOC: M SFHCWAGY 13:24
PROVIDERS: ATTEND Obstetrics & Gynecology
DX: Z12.4 Encounter for screening for malignant neoplasm of cervix (principal)

== ENCOUNTER → 2023-06-15 | Outpatient (CLI) | payer OTHER | LOC: M WHC 07:25 | PROVIDERS: ATTEND Obstetrics & Gynecology | DX: Z12.31 Encounter for screening mammogram for malignant neoplasm of breast (principal) ==

== ENCOUNTER → 2023-07-01 | Outpatient (CLI) | payer OTHER | LOC: M WUC 13:46 | PROVIDERS: ATTEND Internal Medicine | DX: M79.674 Pain in right toe(s) (principal) ==

== ENCOUNTER → 2023-07-01 | Outpatient (REF) | payer OTHER | LOC: M LAB REF 12:12 | PROVIDERS: ATTEND Internal Medicine | DX: K50.818 Crohn's disease of both small and large intestine with other complication (principal) ==

== ENCOUNTER → 2023-09-08 | Outpatient (CLI) | payer OTHER | LOC: M PLAIMG 07:14 | PROVIDERS: ATTEND Nurse Practitioner | DX: M79.642 Pain in left hand (principal) ==

== ENCOUNTER → 2023-12-22 | Outpatient (CLI) | payer OTHER ==
[~2023-12-22] MED LIST changes: -MINO100T PO; +MINO100T6 PO
[2023-12-22 12:26] LABS: BLOOD UREA NITROGEN 6 MG/DL (9-23); CREATININE FOR GFR 0.84 MG/DL (0.55-1.30); GLOMERULAR FILTRATION RATE > 60.0 (>58)
== END ==
LOC: M WUC 08:10
PROVIDERS: ATTEND Psychiatry & Neurology Neurology
DX: I10 Essential (primary) hypertension (principal)

== ENCOUNTER → 2024-02-02 | Outpatient (REF) | payer OTHER ==
[~2024-02-02] MED LIST changes: +BUPR-597 PO; -BUPR300T92 PO
[2024-02-02 14:19] LABS: CORTISOL AM 6.3 UG/DL (4.3-22.4)
[2024-02-02 14:22] LABS: PROLACTIN 12.94 NG/ML
== END ==
LOC: M LAB REF 13:18
PROVIDERS: ATTEND Internal Medicine
DX: K50.818 Crohn's disease of both small and large intestine with other complication (principal); I10 Essential (primary) hypertension; Z90.49 Acquired absence of other specified parts of digestive tract

== ENCOUNTER → 2024-04-30 | Outpatient (CLI) | payer OTHER | LOC: M RAD 15:35 | PROVIDERS: ATTEND Internal Medicine Pulmonary Disease | DX: R91.8 Other nonspecific abnormal finding of lung field (principal) ==

== ENCOUNTER → 2024-08-22 | Outpatient (REF) | payer OTHER ==
[~2024-08-22] MED LIST changes: -CYCL5TAB PO; +CYCL5TAB4 PO
[2024-08-22 15:20] LABS: CORTISOL AM 7.6 UG/DL (4.3-22.4)
[2024-08-22 15:24] LABS: PROLACTIN 15.31 NG/ML
== END ==
LOC: M LAB REF 13:25
PROVIDERS: ATTEND Internal Medicine
DX: D44.3 Neoplasm of uncertain behavior of pituitary gland (principal)

== ENCOUNTER → 2024-09-21 | Outpatient (REF) | payer OTHER ==
[2024-09-26 15:11] LABS: HPV APTIMA Not Detected (Not Detected)
== END ==
LOC: M SFHCWAGY 13:09
PROVIDERS: ATTEND Obstetrics & Gynecology
DX: Z01.419 Encounter for gynecological examination (general) (routine) without abnormal findings (principal)
CPT/HCPCS: 87624; G0123

== ENCOUNTER → 2024-09-21 | Outpatient (CLI) | payer OTHER | LOC: M WHC 07:38 | PROVIDERS: ATTEND Obstetrics & Gynecology | DX: N64.52 Nipple discharge (principal); R92.2 Inconclusive mammogram | CPT/HCPCS: 77066; G0279 ==

== ENCOUNTER → 2024-10-08 | Outpatient (CLI) | payer OTHER | LOC: M WHC 14:00 | PROVIDERS: ATTEND Obstetrics & Gynecology | DX: N64.52 Nipple discharge (principal) | CPT/HCPCS: 77065; G0279 ==

== ENCOUNTER → 2024-12-03 | Outpatient (CLI) | payer OTHER | LOC: M LAB 13:07 | PROVIDERS: ATTEND Registered Nurse | DX: K50.00 Crohn's disease of small intestine without complications (principal) ==

== ENCOUNTER → 2025-06-27 | Outpatient (CLI) | payer OTHER ==
[~2025-06-27] MED LIST changes: +AMIT10TA11 PO; -AMIT10TA7 PO; -BUPR-597 PO; +BUPR-766 PO; -FLOM0.4C39 PO; -FOLI0.8T3 PO; +FOLI800T5 PO; +TAMS-18 PO; +TOPI-14 PO; +TOPI-256 PO; -TOPI200T7 PO; -TOPI25TA10 PO
[2025-06-27 12:09] LABS: BASO # 0.0 10^3/uL (0.0-0.2); BASO % 0.7 % (0.0-1.0); EOS # 0.3 10^3/uL (0.0-0.5); EOS % 5.2 % (0.0-3.0); LYMPH # 2.8 10^3/uL (1.5-5.0); LYMPH % 45.4 % (24.0-44.0); MONO # 0.6 10^3/uL (0.0-0.8); MONO % 9.1 % (2.0-8.0); NEUTROPHILS # 2.4 10^3/uL (1.5-8.5); NEUTROPHILS % 39.3 % (36.0-66.0); PLATELET COUNT, AUTOMATED 306 10^3/uL (150-450)
[2025-06-27 12:42] LABS: ALT/SGPT 24 U/L (7.0-40); AST/SGOT 17 U/L (<34); C REACTIVE PROTEIN QUANTITATIV < 0.50 MG/DL (<1.0); IRON (FE) 78 UG/DL (50-170)
[2025-06-27 12:43] LABS: TOTAL 25(OH) VITAMIN D 33.9 NG/ML (20.0-100.0)
[2025-06-27 12:44] LABS: VITAMIN B12 LEVEL 320 PG/ML (211-911)
== END ==
LOC: M LAB 11:26
PROVIDERS: ATTEND Student in an Organized Health Care Education/Training Program
DX: K50.00 Crohn's disease of small intestine without complications (principal); M25.50 Pain in unspecified joint; K21.9 Gastro-esophageal reflux disease without esophagitis

== ENCOUNTER → 2025-07-04 | Outpatient (REF) | payer OTHER | LOC: M LAB REF 10:40 | PROVIDERS: ATTEND Student in an Organized Health Care Education/Training Program | DX: K50.00 Crohn's disease of small intestine without complications (principal); M25.50 Pain in unspecified joint; K21.9 Gastro-esophageal reflux disease without esophagitis ==

== ENCOUNTER → 2025-07-06 | Outpatient (REF) | payer OTHER | LOC: M LAB REF 18:20 | PROVIDERS: ATTEND Student in an Organized Health Care Education/Training Program | DX: R30.0 Dysuria (principal) ==